=== PATIENT | female | born 1980 | race Caucasian/White ===

== ENCOUNTER 2022-10-31 07:06 | Emergency (ER) | payer OTHER ==
--- OUTSIDE RECORDS SUMMARY | 2022-10-31 07:10 | XMS REPORT | Continuity of Care Document ---
:1980 Author Organization [facility] t Address [address] [place] [address] [address] [place] [address] Care Team Providers Name Role Phone PCP, PATIENT DOES NOT HAVE A Primary Care Physician Unavaila ESHA Ridley Attending Clinician Unavailable Prateek BEAN Attending Clinician Unavailable Prateek Hardwick Attending Clinician ZACH HARVEY Attending Clinician Unavailable Zach Parkinson Attending Clinician Doctor Unassigned, [place] Attending Clinician Unavailable MAGGY PEPPER Attending Clinician Unavailable Maggy Spann Attending Clinician DINESH STEVEN Attending Clinician Unavailable MONSE PURVIS Attending Clinician Unavailable ZAHRA GEORGES Attending Clinician Unavailable ESHA NOLAN Admitting Clinician Unavailable Prateek BEAN Admitting Clinician Unavailable MAGGY PEPPER Admitting Clinician Unavailable ZAHRA GEORGES Admitting Clinician Unavailable Problems Condition Condition Condition Status Onset Resolution Last Treating Co mments Source Name Details Category Date Date Treatment Clinician Date Wrist Wrist Disease Active 2016-04 Univers pain, pain, 2-30 ity of right right 00:00: [place] 00 [facility] Branch Paresthesi Paresthesi Disease Active U nivers a of left a of left 8-02 ity of upper limb [place] [facility] Paresthesi Paresthesi Disease Active U nivers a of left a of left 7-06 ity of arm arm 00:00: [place] 00 Medical Branch Snake bite Snake bite Disease Active U nivers 6-23 ity of 00:00: [place] 00 Medical Branch Muscle Muscle Disease Active Univers atrophy of atrophy of 3-16 it y of upper upper 00:00: [place] extremity extremity 00 Medi an Branch Bicipital Bicipital Disease Active 2012-04 Uni vers tenosynovi tenosynovi 1-08 it y of tis tis 00:00: [place] 00 Medical Branch 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 1-08 ity of labrum labrum 00:00: [place] lesion lesion 00 Medical Branch Muscle Muscle Disease Active 2012-04 Univers weakness weakness 0-22 ity of of left of left 00:00: [place] upper upper 00 Medical extremity extremity Bran ch Rotator Rotator Disease Active 2012-04 Univers cuff cuff 0-09 ity of (capsule) (capsule) 00:[place] sp[place]rain 00 [facility] Stiffness Stiffness Disease Active 2012-04 Uni vers of joint, of joint, 0-09 ity of not not 00:00: [place] elsewhere elsewhere 00 [facility] an classified classified Br anch , shoulder , shoulder region region Shoulder Shoulder Disease Active 2012-04 Unive rs swelling swelling 0-09 ity of 00:00: [place] 00 Medical Branch S/P S/P Disease Active Univers shoulder shoulder 3-20 ity of surgery surgery 00:00: [place] 00 Medical Branch Papanicola Papanicola Disease Active U nivers ou smear ou smear 6-17 ity of of cervix of cervix 00:[place] with high with high 00 [facility] an 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 ICD10 Diagnosis Term Adult Specialist Utility Chronic Chronic Disease Active Overview: Univ ers depressive depressive 6-16 Formattin ity of personalit personalit 00:00: g of this [place] y disorder y disorder 00 note Me dical might be Branch different from the original. Sees Dr. Deras in psych departmen t, taking Zoloft and Desyrel Normal Normal Disease Active Univers delivery delivery 6-15 ity of 00:00: [place] 00 Medical Branch Disease Active U nivers care and care and 6-15 ity of examinatio examinatio 00:[place] 00 Medical immediatel immediatel Br anch y after y after delivery delivery Tubal Tubal Disease Active Overview: Univer s ligation ligation 09-28 Formattin ity of status status 00:00: g of this note Medical might be Branch different from the original. BTO done 09/29/07 Epilepsy Epilepsy Disease Active Overview: Un [place] - Formattin ity of 00:00: g of this note Medical might be Branch different from the original. ICD10 Diagnosis Term Adult Specialist Utility Personal Personal Disease Active Overview: Un [place] history of history of 08-04 Formattin ity of mental mental 00:00: g of this [place] disorder disorder 00 note Medica l might be Branch different from the original. 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 Uteri ICD10 Diagnosis Term Adult Specialist Utility Personal Personal Disease Active Unive rs history of history of - it y of tobacco tobacco 00:00: [place] use, use, 00 Medical presenting presenting Br anch hazards to hazards to health health Allergies, Adverse Reactions, Alerts Allergy Allergy Status Severity Reaction(s) Onset Inactive Treating Comm ents Source Name Type Date Date Clinician LATEX, Drug Active Med ITCHING Univers NATURAL Class 1-10 ity of RUBBER 00:00: Medical Branch PREGABAL DRUG Active Med Other-Cmnt Univ ers IN INGREDI 1-10 ity of 00:00: Medical Branch Latex, Propensi Active Itching Univers Natural ty to 1-10 ity of Rubber adverse 00:00: [place] reaction 00 Medical s to Branch drug Latex, Propensi Active Itching Univers Natural ty to 1-10 ity of Rubber adverse 00:00: [place] reaction 00 Medical s to Branch drug Pregabal Propensi Active Other - See U nivers in ty to comments 1-10 ity of adverse 00:00: [place] reaction 00 Medical s to Branch drug Social History Social Habit Start Date Stop Date Quantity Comments Source History of tobacco Cigarette Smoker University of use [facility] Exposure to 2022-05-31 2022-06-10 Not sure [facility] SARS-CoV-2 (event) 00:00:00 09:24:00 [facility] Alcohol intake 2022-06-10 2022-06-10 Current University of 00:00:00 00:00:00 non-drinker of [facility] alcohol Branch (finding) Cigarettes smoked 2018-01-01 2018-01-01 Univers ity of current (pack per 00:00:00 00:00:00 [facility] [place] ) - Reported Branch Cigarette 2018-01-01 2018-01-01 University of pack-years 00:00:00 00:00:00 [facility] Tobacco use and 2018-01-01 2018-01-01 Smokeless Universit y of exposure 00:00:00 00:00:00 tobacco non-user [facility] Tobacco Comment 2007-08-05 2007-08-05 16-20 times a Univer sity of 00:00:00 00:00:00 day; 16-20 yrs; [facility] ica reduced [place] Sex Ass[birth year] At [birth year] Universit y of 00:00:00 00:00:00 [facility] Smoking Status Start Date Stop Date Source Smokes tobacco daily 2018-01-01 00:00:00 Univers ity of [facility] Medications Ordered Filled Start Stop Current Ordering Indication Dosage Frequency Signature Comments Components Source Medication Medication Date Date Medication? Clinician (SIG) Name Name ibuprofen Yes [id number] 800mg Take 1 Univers 800 mg 6-08 tablet by ity of tablet 00:00: mouth [place] 00 every 6 Medical (six) Branch hours as needed for Pain (scale 4-6). methylpredn No 125mg 125 mg, U nivers isolone sod -06-10 Intramuscu i ty of succ 17:00: 16:07 lar, ONCE, [place] (SOLU-MEDRO 00 :00 1 dose, On Me dical L) Sat Branch injection 06/10/22 at 125 mg 1100, JOHNY methylPREDN 2022-0 Yes [id number] Take by Univers ISolone 2-25 mouth ity of (MEDROL, 00:00: SEE-INSTRU [place] as LOAN,) 4 mg 00 CTIONS. Medica l tablets follow Branch package directions benzonatate 2022-0 Yes [id number] 200mg Take 1 Univers 200 mg 2-25 capsule by ity of capsule 00:00: mouth 3 00 (three) Medical times Branch daily as needed for Cough for up to 20 doses. methylPREDN 2022-0 Yes [id number] Take by Univers ISolone 2-25 mouth ity of (MEDROL, 00:00: SEE-INSTRU [place] as LOAN,) 4 mg 00 CTIONS. Medica l tablets follow Branch package directions benzonatate 2022-0 Yes [id number] 200mg Take 1 Univers 200 mg 2-25 capsule by ity of capsule 00:00: mouth 3 (three) Medical times Branch daily as needed for Cough for up to 20 doses. methylPREDN 2021-0 Yes [id number] Take by Univers ISolone 4 9-20 mouth ity of mg tablets 00:00: [place]-INSTRU [place] 00 CTIONS. Medical follow Branch package directions albuterol 2021-0 Yes [id number] 2{puff} Inhale 2 Univers 90 9-20 Puffs ity of mcg/actuati 00:00: every 4 [place] as on inhaler 00 (four) Medical hours as Branch needed for Wheezing or Shortness of Breath. benzonatate 2021-0 Yes [id number] 100mg Take 1 Univers 100 mg 9-20 capsule by ity of capsule 00:00: mouth 3 [place] 00 (three) Medical times Branch daily as needed for Cough. methylPREDN 2021-0 Yes [id number] Take by Univers ISolone 4 9-20 mouth ity of mg tablets 00:00: SEE-INSTRU [place] 00 CTIONS. Medical follow Branch package directions albuterol 2021-0 Yes [id number] 2{puff} Inhale 2 Univers 90 9-20 Puffs ity of mcg/actuati 00:00: every 4 [place] as on inhaler 00 (four) Medical hours as Branch needed for Wheezing or Shortness of Breath. benzonatate 2021-0 Yes [id number] 100mg Take 1 Univers 100 mg 9-20 capsule by ity of capsule 00:00: mouth 3 [place] 00 (three) Medical times Branch daily as needed for Cough. methylPREDN Yes [id number] Take by Univers ISolone 4 9-20 mouth ity of mg tablets 00:00: SEE-INSTRU [place] 00 CTIONS. Medical follow Branch package directions albuterol Yes [id number] 2{puff} Inhale 2 Univers 90 9-20 Puffs ity of mcg/actuati 00:00: every 4 [place] on inhaler 00 (four) Medical hours as Branch needed for Wheezing or Shortness of Breath. benzonatate Yes [id number] 100mg Take 1 Univers 100 mg 9-20 capsule by ity of capsule 00:00: mouth 3 [place] 00 (three) Medical times Branch daily as needed for Cough. ketorolac 2021- No 15mg 15 mg, Unive rs (TORADOL) 05-23 Slow IV ity of injection 19:15: 18:13 Push, [place] 15 mg 00 :00 ONCE, 1 Medical dose, On Branch Sun05/23/21 at 1315, JOHNY
Fa culty member approving Restricted medication : Prateek BEAN HYDROcodone 2021- No 1{tbl} 1 tablet, Univers -acetaminop 05-23 Oral, ity of hen (NORCO 18:15: 17:17 ONCE, 1 [place] 5) 5-325 mg 00 :00 dose, On Medi an tablet 1 Sun05/23/21 Bran h tablet at 1215, JOHNY iopamidol 2021- No [id number] 100mL 100 mL, Univers (ISOVUE 05-23 Intravenou ity o f 370-500 mL) 17:05: 17:30 s, ONCE, 1 [place] injection 00 :00 dose, On Medica l 100 mL Sun05/23/21 Branch at 1130, Routine traMADoL 50 Yes [id number] 50mg Take 1 Univ ers mg tablet 2-07 tablet by ity o f 00:00: mouth [place] 00 every 6 Medical (six) Branch hours as needed for Pain (scale 4-6). Indication s: acute pain ibuprofen 2022-0 Yes [id number] 600mg Take 1 Univers 600 mg 2-07 tablet by ity of tablet 00:00: mouth [place] 00 every 6 Medical (six) Branch hours as needed for Pain (scale 4-6). traMADoL 50 2021-0 Yes [id number] 50mg Take 1 Univ ers mg tablet 2-07 tablet by ity o f 00:00: mouth [place] 00 every 6 Medical (six) Branch hours as needed for Pain (scale 4-6). Indication s: acute pain ibuprofen 2021-0 Yes [id number] 600mg Take 1 Univers 600 mg 2-07 tablet by ity of tablet 00:00: mouth [place] 00 every 6 Medical (six) Branch hours as needed for Pain (scale 4-6). traMADoL 50 2021-0 Yes [id number] 50mg Take 1 Univ ers mg tablet 2-07 tablet by ity o f 00:00: mouth [place] 00 every 6 Medical (six) Branch hours as needed for Pain (scale 4-6). Indication s: acute pain ibuprofen 2021-0 Yes [id number] 600mg Take 1 Univers 600 mg 2-07 tablet by ity of tablet 00:00: mouth [place] 00 every 6 Medical (six) Branch hours as needed for Pain (scale 4-6). traMADoL 50 2021-0 Yes [id number] 50mg Take 1 Univ ers mg tablet 2-07 tablet by ity o f 00:00: mouth [place] 00 every 6 Medical (six) Branch hours as needed for Pain (scale 4-6). Indication s: acute pain ibuprofen 2021-0 Yes [id number] 600mg Take 1 Univers 600 mg 2-07 tablet by ity of tablet 00:00: mouth [place] 00 every 6 Medical (six) Branch hours as needed for Pain (scale 4-6). traMADoL 50 2021-0 Yes [id number] 50mg Take 1 Univ ers mg tablet 2-07 tablet by ity o f 00:00: mouth [place] 00 every 6 Medical (six) Branch hours as needed for Pain (scale 4-6). Indication s: acute pain ibuprofen 2021-0 Yes [id number] 600mg Take 1 Univers 600 mg 2-07 tablet by ity of tablet 00:00: mouth [place] 00 every 6 Medical (six) Branch hours as needed for Pain (scale 4-6). methocarbam 2021- No 500mg 500 mg, U nivers oL 05-16 Oral, ity of (ROBAXIN) 23:45: 22:46 ONCE, 1 [place] tablet 500 00 :00 dose, On Medic al mg Mon Branch 05/16/21 at 1745, Routine ketorolac 2021- No 30mg 30 mg, Unive rs (TORADOL) 05-16 Slow IV ity of injection 23:45: 22:46 [place], [place] 30 mg 00 :00 ONCE, 1 Medical dose, On Branch 05/16/21 at 1745, [facility] : MAGGY PEPPER HYDROcodone 2021- No 1{tbl} 1 tablet, Univers -acetaminop 05-16 Oral, ity of hen (NORCO) 23:45: 22:45 ONCE, 1 [place] 10-325 mg 00 :00 dose, On Medica l tablet 1 Mon Branch tablet 05/16/21 at 1745, Routine methocarbam Yes [id number] 500mg Take 1 Univers oL 500 mg 05-16 [id number] tablet by ity of tablet 00:00: mouth 4 [place] 00 (four) Medical times Branch daily as needed for Pain (scale 4-6). naproxen Yes [id number] 500mg Take 1 Univers (NAPROSYN) 05-16 [id number] tablet by it y of 500 mg 00:00: mouth 2 [place] tablet 00 (two) Medical times Branch daily with meals. acetaminoph Yes [id number] 1{tbl} Take 1 Un [place] en-codeine 05-16 tablet by ity of 300-30 mg 00:00: mouth [place] tablet 00 every 4 Medical (four) Branch hours as needed for Pain (scale 7-10). Indication s: acute pain methocarbam Yes [id number] 500mg Take 1 Univers oL 500 mg 05-16 [id number] tablet by ity of tablet 00:00: mouth 4 [place] 00 (four) Medical times Branch daily as needed for Pain (scale 4-6). naproxen Yes [id number] 500mg Take 1 Univers (NAPROSYN) 05-16 [id number] tablet by it y of 500 mg 00:00: mouth 2 [place] tablet 00 (two) Medical times Branch daily with meals. acetaminoph 2022-0 Yes [id number] 1{tbl} Take 1 Un [place] en-codeine 1-31 tablet by ity of 300-30 mg 00:00: mouth [place] tablet 00 every 4 Medical (four) Branch hours as needed for Pain (scale 7-10). Indication s: acute pain methocarbam 2021-0 Yes [id number] 500mg Take 1 Univers oL 500 mg 1-31 [id number] tablet by ity of tablet 00:00: mouth 4 [place] 00 (four) Medical times Branch daily as needed for Pain (scale 4-6). naproxen 2022-0 Yes [id number] 500mg Take 1 Univers (NAPROSYN) 1-31 [id number] tablet by it y of 500 mg 00:00: mouth 2 [place] tablet 00 (two) Medical times Branch daily with meals. acetaminoph 2022-0 Yes [id number] 1{tbl} Take 1 Un [place] en-codeine 1-31 tablet by ity of 300-30 mg 00:00: mouth [place] tablet 00 every 4 Medical (four) Branch hours as needed for Pain (scale 7-10). Indication s: acute pain methocarbam 2021-0 Yes [id number] 500mg Take 1 Univers oL 500 mg 1-31 [id number] tablet by ity of tablet 00:00: mouth 4 [place] 00 (four) Medical times Branch daily as needed for Pain (scale 4-6). naproxen 2-0 Yes [id number] 500mg Take 1 Univers (NAPROSYN) 1-31 [id number] tablet by it y of 500 mg 00:00: mouth 2 [place] tablet 00 (two) Medical times Branch daily with meals. acetaminoph 2022-0 Yes [id number] 1{tbl} Take 1 Un [place] en-codeine 1-31 tablet by ity of 300-30 mg 00:00: mouth [place] tablet 00 every 4 Medical (four) Branch hours as needed for Pain (scale 7-10). Indication s: acute pain methocarbam 2-0 Yes [id number] 500mg Take 1 Univers oL 500 mg 1-31 [id number] tablet by ity of tablet 00:00: mouth 4 [place] 00 (four) Medical times Branch daily as needed for Pain (scale 4-6). naproxen 2022-0 Yes [id number] 500mg Take 1 Univers (NAPROSYN) 1-31 [id number] tablet by it y of 500 mg 00:00: mouth 2 [place] tablet 00 (two) Medical times Branch daily with meals. acetaminoph 2021-0 Yes [id number] 1{tbl} Take 1 Un [place] en-codeine 1-31 tablet by ity of 300-30 mg 00:00: mouth [place] tablet 00 every 4 Medical (four) Branch hours as needed for Pain (scale 7-10). Indication s: acute pain methocarbam 2021-0 Yes [id number] 500mg Take 1 Univers oL 500 mg 1-31 [id number] tablet by ity of tablet 00:00: mouth 4 [place] 00 (four) Medical times Branch daily as needed for Pain (scale 4-6). naproxen 2021-0 Yes [id number] 500mg Take 1 Univers (NAPROSYN) 1-31 [id number] tablet by it y of 500 mg 00:00: mouth 2 [place] tablet 00 (two) Medical times Branch daily with meals. acetaminoph 2021-0 Yes [id number] 1{tbl} Take 1 Un [place] en-codeine 1-31 tablet by ity of 300-30 mg 00:00: mouth [place] tablet 00 every 4 Medical (four) Branch hours as needed for Pain (scale 7-10). Indication s: acute pain ibuprofen 2020-0 Yes [id number] 600mg Take 1 Univers 600 mg 5-25 tablet by ity of tablet 00:00: mouth [place] 00 every 6 Medical (six) Branch hours as needed for Pain (scale 4-6). ibuprofen 2020-0 Yes [id number] 600mg Take 1 Univers 600 mg 5-25 tablet by ity of tablet 00:00: mouth [place] 00 every 6 Medical (six) Branch hours as needed for Pain (scale 4-6). ibuprofen 2021-0 Yes [id number] 600mg Take 1 Univers 600 mg 5-25 tablet by ity of tablet 00:00: mouth [place] 00 every 6 Medical (six) Branch hours as needed for Pain (scale 4-6). ibuprofen 202-0 Yes [id number] 600mg Take 1 Univers 600 mg 5-25 tablet by ity of tablet 00:00: mouth [place] 00 every 6 Medical (six) Branch hours as needed for Pain (scale 4-6). ibuprofen 2020-0 Yes [id number] 600mg Take 1 Univers 600 mg 5-25 tablet by ity of tablet 00:00: mouth [place] 00 every 6 Medical (six) Branch hours as needed for Pain (scale 4-6). ibuprofen 2020-0 Yes [id number] 600mg Take 1 Univers 600 mg 5-25 tablet by ity of tablet 00:00: mouth [place] 00 every 6 Medical (six) Branch hours as needed for Pain (scale 4-6). ibuprofen 2020-0 Yes [id number] 800mg Take 1 U nivers 800 mg 6-23 tablet by ity of tablet 00:00: mouth [place] 00 every 8 Medical (eight) Branch hours as needed for Pain (scale 4-6). ibuprofen 2020-0 Yes [id number] 800mg Take 1 U nivers 800 mg 6-23 tablet by ity of tablet 00:00: mouth [place] 00 every 8 Medical (eight) Branch hours as needed for Pain (scale 4-6). ibuprofen 2020-0 Yes [id number] 800mg Take 1 U nivers 800 mg 6-23 tablet by ity of tablet 00:00: mouth [place] 00 every 8 Medical (eight) Branch hours as needed for Pain (scale 4-6). ibuprofen 2020-0 Yes [id number] 800mg Take 1 U nivers 800 mg 6-23 tablet by ity of tablet 00:00: mouth [place] 00 every 8 Medical (eight) Branch hours as needed for Pain (scale 4-6). ibuprofen 2020-0 Yes [id number] 800mg Take 1 U nivers 800 mg 6-23 tablet by ity of tablet 00:00: mouth [place] 00 every 8 Medical (eight) Branch hours as needed for Pain (scale 4-6). ibuprofen 2020-0 Yes [id number] 800mg Take 1 U nivers 800 mg 6-23 tablet by ity of tablet 00:00: mouth [place] 00 every 8 Medical (eight) Branch hours as needed for Pain (scale 4-6). acetaminoph 2020-0 2- No [id number] 1{tbl} Take 1 Univers en-codeine 6-23 - tablet by ity of (TYLENOL-CO 00:00: 00:00 [place] DEINE #3) 00 :00 every 4 Medical 300-30 mg (four) Branch tablet hours as needed for Pain (scale 7-10). methocarbam 2020-0 2021- No [id number] 750mg Take 1 Univers ol 6-23 -31 tablet by ity of (ROBAXIN-75 00:00: 00:00 [place] 4 [place] 0) 750 mg 00 :00 (four) Medical tablet times Branch daily as needed for Pain (scale 7-10). ondansetron 2020-0 Yes [id number] 4mg Take 1 Univers (ZOFRAN 1-26 tablet by ity of ODT) 4 mg 00:00: mouth [place] disintegrat 00 every 8 Medic al ing tablet (eight) Branch hours as needed for Nausea and Vomiting (N/V). albuterol 2020-0 Yes [id number] 2.5mg Inhale 3 Univers 2.5 mg /3 1-26 mL every 4 ity of mL (0.083 00:00: (four) [place] %) 00 hours as Medical nebulizer needed for Bran ch solution Wheezing or Shortness of Breath. benzonatate 2020-0 Yes [id number] 100mg Take 1 Univers 100 mg 1-26 capsule by ity of capsule 00:00: mouth 3 [place] 00 (three) Medical times Branch daily as needed for Cough. ondansetron 2020-0 Yes [id number] 4mg Take 1 Univers (ZOFRAN 1-26 tablet by ity of ODT) 4 mg 00:00: mouth [place] disintegrat 00 every 8 Medic al ing tablet (eight) Branch hours as needed for Nausea and Vomiting (N/V). albuterol 2020-0 Yes [id number] 2.5mg Inhale 3 Univers 2.5 mg /3 1-26 mL every 4 ity of mL (0.083 00:00: (four) [place] %) 00 hours as Medical nebulizer needed for Bran ch solution Wheezing or Shortness of Breath. benzonatate 2020-0 Yes [id number] 100mg Take 1 Univers 100 mg 1-26 capsule by ity of capsule 00:00: mouth 3 [place] 00 (three) Medical times Branch daily as needed for Cough. ondansetron 2020-0 Yes [id number] 4mg Take 1 Univers (ZOFRAN 1-26 tablet by ity of ODT) 4 mg 00:00: mouth [place] disintegrat 00 every 8 Medic al ing tablet (eight) Branch hours as needed for Nausea and Vomiting (N/V). ondansetron 2020-0 Yes [id number] 4mg Take 1 Univers (ZOFRAN 1-26 tablet by ity of ODT) 4 mg 00:00: mouth [place] disintegrat 00 every 8 Medic al ing tablet (eight) Branch hours as needed for Nausea and Vomiting (N/V). ondansetron 2020-0 Yes [id number] 4mg Take 1 Univers (ZOFRAN 1-26 tablet by ity of ODT) 4 mg 00:00: mouth [place] disintegrat 00 every 8 Medic al ing tablet (eight) Branch hours as needed for Nausea and Vomiting (N/V). ondansetron 2020-0 Yes [id number] 4mg Take 1 Univers (ZOFRAN 1-26 tablet by ity of ODT) 4 mg 00:00: mouth [place] disintegrat 00 every 8 Medic al ing tablet (eight) Branch hours as needed for Nausea and Vomiting (N/V). albuterol 2020-0 Yes [id number] 2.5mg Inhale 3 Univers 2.5 mg /3 1-26 mL every 4 ity of mL (0.083 00:00: (four) [place] %) 00 hours as Medical nebulizer needed for Bran ch solution Wheezing or Shortness of Breath. benzonatate 2020-0 Yes [id number] 100mg Take 1 Univers 100 mg 1-26 capsule by ity of capsule 00:00: mouth 3 [place] 00 (three) Medical times Branch daily as needed for Cough. albuterol 2019-2021- No [id number] 2.5mg Inhale 3 Univers 2.5 mg /3 1-26 09-20 mL every 4 ity of mL (0.083 00:00: 00:00 (four) [place] %) 00 :00 hours as Medical nebulizer needed for Bran ch solution Wheezing or Shortness of Breath. benzonatate 2020-0 2021- No [id number] 100mg Take 1 Univers 100 mg 1-26 09-20 capsule by ity of capsule 00:00: 00:00 mouth 3 [place] 00 :00 (three) Medical times Branch daily as needed for Cough. sod 2018-04 Yes [id number] 1{bottl Use 1 Unive rs chlor-bicar 0-11 e} Bottle in ity of b-squeez 00:00: each [place] bottle 00 nostril 2 Medical (NEILMED (two) Branch SINUS RINSE times COMPLETE) daily. Use pkdv in hot shower 1 hour before bedtime promethazin 2018-04 Yes [id number] 5mL Take 5 mL Univers e-codeine 0-11 by mouth 4 ity of 6.25-10 00:00: (four) [place] mg/5 mL 00 times Medical syrup daily as Branch needed for Cough. sod 2018-04 Yes [id number] 1{bottl Use 1 Unive rs chlor-bicar 0-11 e} Bottle in ity of b-squeez 00:00: each [place] bottle 00 nostril 2 Medical (NEILMED (two) Branch SINUS RINSE times COMPLETE) daily. Use pkdv in hot shower 1 hour before bedtime promethazin 2018-04 Yes [id number] 5mL Take 5 mL Univers e-codeine 0-11 by mouth 4 ity of 6.25-10 00:00: (four) [place] mg/5 mL 00 times Medical syrup daily as Branch needed for Cough. sod 2018-04 Yes [id number] 1{bottl Use 1 Unive rs chlor-bicar 0-11 e} Bottle in ity of b-squeez 00:00: each [place] bottle 00 nostril 2 Medical (NEILMED (two) Branch SINUS RINSE times COMPLETE) daily. Use pkdv in hot shower 1 hour before bedtime promethazin 2018-04 Yes [id number] 5mL Take 5 mL Univers e-codeine 0-11 by mouth 4 ity of 6.25-10 00:00: (four) [place] mg/5 mL 00 times Medical syrup daily as Branch needed for Cough. sod 2018-04 Yes [id number] 1{bottl Use 1 Unive rs chlor-bicar 0-11 e} Bottle in ity of b-squeez 00:00: each [place] bottle 00 nostril 2 Medical (NEILMED (two) Branch SINUS RINSE times COMPLETE) daily. Use pkdv in hot shower 1 hour before bedtime promethazin 2018-04 Yes [id number] 5mL Take 5 mL Univers e-codeine 0-11 by mouth 4 ity of 6.25-10 00:00: (four) [place] mg/5 mL 00 times Medical syrup daily as Branch needed for Cough. sod 2018-04 Yes [id number] 1{bottl Use 1 Unive rs chlor-bicar 0-11 e} Bottle in ity of b-squeez 00:00: each [place] bottle 00 nostril 2 Medical (NEILMED (two) Branch SINUS RINSE times COMPLETE) daily. Use pkdv in hot shower 1 hour before bedtime promethazin 2018-04 Yes [id number] 5mL Take 5 mL Univers e-codeine 0-11 by mouth 4 ity of 6.25-10 00:00: (four) [place] mg/5 mL 00 times Medical syrup daily as Branch needed for Cough. sod 2018-04 Yes [id number] 1{bottl Use 1 Unive rs chlor-bicar 0-11 e} Bottle in ity of b-squeez 00:00: each [place] bottle 00 nostril 2 Medical (NEILMED (two) Branch SINUS RINSE times COMPLETE) daily. Use pkdv in hot shower 1 hour before bedtime promethazin 2018-04 Yes [id number] 5mL Take 5 mL Univers e-codeine 0-11 by mouth 4 ity of 6.25-10 00:00: (four) [place] mg/5 mL 00 times Medical syrup daily as Branch needed for Cough. cyclobenzap Yes [id number] 5mg Take 1 Univers rine 5 mg 8-25 [id number] tablet by ity of tablet 00:00: mouth 3 [place] 00 (three) Medical times Branch daily. traMADol Yes [id number] 50mg Take 1 Univers (ULTRAM) 50 8-25 [id number] tablet by i ty of mg tablet 00:00: mouth [place] 00 every 8 Medical (eight) Branch hours as needed for Pain (scale 4-6). ibuprofen Yes [id number] 600mg Take 1 Univers 600 mg 8-25 [id number] tablet by ity of tablet 00:00: mouth 4 [place] 00 (four) Medical times Branch daily as needed for Pain (scale 4-6). cyclobenzap Yes [id number] 5mg Take 1 Univers rine 5 mg 8-25 [id number] tablet by ity of tablet 00:00: mouth 3 [place] 00 (three) Medical times Branch daily. traMADol 2018- Yes [id number] 50mg Take 1 Univers (ULTRAM) 50 8-25 [id number] tablet by i ty of mg tablet 00:00: mouth [place] 00 every 8 Medical (eight) Branch hours as needed for Pain (scale 4-6). ibuprofen 2019-0 Yes [id number] 600mg Take 1 Univers 600 mg 8-25 [id number] tablet by ity of tablet 00:00: mouth 4 (four) Medical times Branch daily as needed for Pain (scale 4-6). cyclobenzap 2019-0 Yes [id number] 5mg Take 1 Univers rine 5 mg 8-25 [id number] tablet by ity of tablet 00:00: mouth 3 (three) Medical times Branch daily. traMADol 2019-0 Yes [id number] 50mg Take 1 Univers (ULTRAM) 50 8-25 [id number] tablet by i ty of mg tablet 00:00: mouth [place] 00 every 8 Medical (eight) Branch hours as needed for Pain (scale 4-6). ibuprofen 2019-0 Yes [id number] 600mg Take 1 Univers 600 mg 8-25 [id number] tablet by ity of tablet 00:00: mouth (four) Medical times Branch daily as needed for Pain (scale 4-6). cyclobenzap 2019-0 Yes [id number] 5mg Take 1 Univers rine 5 mg 8-25 [id number] tablet by ity of tablet 00:00: mouth (three) Medical times Branch daily. traMADol 2019-0 Yes [id number] 50mg Take 1 Univers (ULTRAM) 50 8-25 [id number] tablet by i ty of mg tablet 00:00: mouth [place] 00 every 8 Medical (eight) Branch hours as needed for Pain (scale 4-6). ibuprofen 2019-0 Yes [id number] 600mg Take 1 Univers 600 mg 8-25 [id number] tablet by ity of tablet 00:00: mouth (four) Medical times Branch daily as needed for Pain (scale 4-6). cyclobenzap 2019-0 Yes [id number] 5mg Take 1 Univers rine 5 mg 8-25 [id number] tablet by ity of tablet 00:00: mouth 3 (three) Medical times Branch daily. traMADol 2019-0 Yes [id number] 50mg Take 1 Univers (ULTRAM) 50 8-25 [id number] tablet by i ty of mg tablet 00:00: mouth [place] 00 every 8 Medical (eight) Branch hours as needed for Pain (scale 4-6). ibuprofen 2019-0 Yes [id number] 600mg Take 1 Univers 600 mg 8-25 [id number] tablet by ity of tablet 00:00: mouth 4 [place] 00 (four) Medical times Branch daily as needed for Pain (scale 4-6). cyclobenzap 2018-0 Yes [id number] 5mg Take 1 Univers rine 5 mg 8-25 [id number] tablet by ity of tablet 00:00: mouth 3 [place] 00 (three) Medical times Branch daily. traMADol 2018- Yes [id number] 50mg Take 1 Univers (ULTRAM) 50 8-25 [id number] tablet by i ty of mg tablet 00:00: mouth [place] 00 every 8 Medical (eight) Branch hours as needed for Pain (scale 4-6). ibuprofen Yes [id number] 600mg Take 1 Univers 600 mg 8-25 [id number] tablet by ity of tablet 00:00: mouth 4 [place] 00 (four) Medical times Branch daily as needed for Pain (scale 4-6). codeine-gua Yes [id number] 10mL Take 10 mL Univers ifenesin 6-10 by mouth ity of 10-100 mg/5 00:00: every 6 [place] as mL solution 00 (six) Medical hours as Branch needed for Cough. codeine-gua Yes [id number] 10mL Take 10 mL Univers ifenesin 6-10 by mouth ity of 10-100 mg/5 00:00: every 6 [place] as mL solution 00 (six) Medical hours as Branch needed for Cough. codeine-gua Yes [id number] 10mL Take 10 mL Univers ifenesin 6-10 by mouth ity of 10-100 mg/5 00:00: every 6 [place] as mL solution 00 (six) Medical hours as Branch needed for Cough. codeine-gua Yes [id number] 10mL Take 10 mL Univers ifenesin 6-10 by mouth ity of 10-100 mg/5 00:00: every 6 [place] as mL solution 00 (six) Medical hours as Branch needed for Cough. codeine-gua Yes [id number] 10mL Take 10 mL Univers ifenesin 6-10 by mouth ity of 10-100 mg/5 00:00: every 6 [place] as mL solution 00 (six) Medical hours as Branch needed for Cough. codeine-gua 2019-0 Yes [id number] 10mL Take 10 mL Univers ifenesin 6-10 by mouth ity of 10-100 mg/5 00:00: every 6 [place] as mL solution 00 (six) Medical hours as Branch needed for Cough. Immunizations Ordered Filled Immunization Date Status Comments [facility]ly [facility] e Immunization Name Name Rolly LARAID-Adrian Lofton COVID-19 2020-06-26 Completed Vaccine Vaccine 00:00:00 Rolly COVID-19 Rloly COVID-19 2020-05-21 Completed Vaccine Vaccine 00:00:00 Influenza Virus 2018-03-19 Completed Universit y of Vaccine 00:00:00 [facility] Influenza Virus 2018-03-19 Completed Universit y of Vaccine 00:00:00 [facility] Influenza Virus 2018-03-19 Completed Universit y of Vaccine 00:00:00 [facility] Influenza Virus 2018-03-19 Completed Universit y of Vaccine 00:00:00 [facility] Influenza Virus 2018-03-19 Completed Universit y of Vaccine 00:00:00 [facility] Influenza Virus 2018-03-19 Completed Universit y of Vaccine 00:00:00 [facility] Vital Signs Vital Name Observation Time Observation Value Comments Source Systolic blood 2022-09-21 21:48:00 152 mm[Hg] Univer sity of pressure [facility] Diastolic blood 2022-09-21 21:48:00 96 mm[Hg] Unive rsity of [facility] Heart rate 2022-09-21 21:48:00 71 /min [facility] Body temperature 2022-09-21 21:48:00 36.78 Tete [facility] 2022-09-21 21:48:00 16 /min [facility] Body weight 2022-09-21 21:48:00 79.833 kg [facility] BMI 2022-09-21 21:48:00 28.41 kg/m2 [facility] Oxygen saturation in 2022-09-21 21:48:00 97 /min [facility] Arterial blood by [facility] Pulse oximetry Branch Systolic blood 2022-06-10 15:25:00 114 mm[Hg] Univer sity of pressure [facility] Diastolic blood 2022-06-10 15:25:00 84 mm[Hg] Unive rsity of pressure [place] [facility] Heart rate 2022-06-10 15:25:00 105 /min [facility] [place] [facility] Body temperature 2022-06-10 15:25:00 36.78 Tete Univ [facility] [place] [facility] Respiratory rate 2022-06-10 15:25:00 16 /min [facility] [place] [facility] Body height 2022-06-10 15:25:00 167.6 cm [facility] [place] [facility] Body weight 2022-06-10 15:25:00 81.647 kg [facility] [place] [facility] BMI 2022-06-10 15:25:00 29.05 kg/m2 [facility] [place] [facility] Oxygen saturation in 2022-06-10 15:25:00 97 /min University of Arterial blood by [place] [facility] Pulse oximetry Branch Systolic blood 2022-01-03 20:23:00 126 mm[Hg] Univer sity of pressure [place] [facility] Diastolic blood 2022-01-03 20:23:00 93 mm[Hg] Unive rsity of pressure [place] [facility] Heart rate 2022-01-03 20:23:00 102 /min Universi ty [facility] [place] [facility] Body temperature 2022-01-03 20:23:00 37.44 Tete Univ [facility] [place] [facility] Respiratory rate 2022-01-03 20:23:00 18 /min Univ [facility] [place] [facility] Body height 2022-01-03 20:23:00 167.6 cm [facility] [place] [facility] Body weight 2022-01-03 20:23:00 81.647 kg [facility] [place] [facility] BMI 2022-01-03 20:23:00 29.05 kg/m2 [facility] [place] [facility] Oxygen saturation in 2022-01-03 20:23:00 98 /min University of Arterial blood by [place] [facility] Pulse oximetry Branch Oxygen saturation in 2021-05-23 18:17:00 97 /min University of Arterial blood by [place] [facility] Pulse oximetry Branch Systolic blood 2021-05-23 16:22:00 150 mm[Hg] Univer sity of pressure [place] [facility] Diastolic blood 2021-05-23 16:22:00 96 mm[Hg] Unive rsity of pressure [place] [facility] Heart rate 2021-05-23 16:22:00 88 /min [facility]i [facility] [place] [facility] Body temperature 2021-05-23 16:22:00 36.67 Tete Univ [facility] [place] [facility] Respiratory rate 2021-05-23 16:22:00 20 /min [facility] [place] [facility] Body weight 2021-05-23 16:22:00 86.183 kg [facility] [place] [facility] BMI 2021-05-23 16:22:00 30.67 kg/m2 [facility] [place] [facility] Systolic blood 2021-05-16 22:47:44 114 mm[Hg] Univer sity of pressure [place] [facility] Diastolic blood 2021-05-16 22:47:44 84 mm[Hg] Unive rsity of pressure [place] [facility] Heart rate 2021-05-16 22:47:44 95 /min [facility] [place] [facility] Body temperature 2021-05-16 22:47:44 36.89 Tete [facility] ersity [facility] [place] [facility] Respiratory rate 2021-05-16 22:47:44 18 /min Univ [facility] [place] [facility] Body height 2021-05-16 21:59:00 167.6 cm [facility] [place] [facility] Body weight 2021-05-16 21:53:00 86.183 kg [facility] [place] [facility] BMI 2021-05-16 21:53:00 30.67 kg/m2 [facility] [place] [facility] Oxygen saturation in 2021-05-16 21:53:00 98 /min [facility] blood by [facility] Pulse oximetry Branch Procedures Procedure Date / Time Performing Clinician Source Performed ASSIGNMENT OF BENEFITS 2022-09-21 23:15:28 Doctor Unassigned, No [facility] Name Medical Branch NOTICE OF PRIVACY 2022-09-21 21:44:31 Doctor Unassigned, No [facility] PRACTICES Name Medical Branch CONSENT/REFUSAL FOR 2022-09-21 21:43:55 Doctor Unassigned, No [facility] [place] [facility] Name Medical Branch CONSENT/REFUSAL FOR 2022-06-10 15:13:24 Doctor Unassigned, No Un iversity [facility] [place] [facility] DIAGNOSIS AND TREATMENT Name Medical Branch CONSENT/REFUSAL FOR 2022-01-03 20:02:02 [facility] Branch AUTHORIZATION FOR 2021-07-07 05:01:00 Doctor Unassigned, No Univ ersity [facility] RELEASE OF PHI Name Medical Branch CT THORAX W CONTRAST 2021-05-23 17:16:43 Prateek Bean [facility] ity of [facility] NOTICE OF PRIVACY 2021-05-23 16:16:58 Doctor Unassigned, No [facility] [place] PRACTICES Name Medical Branch XR CHEST 1 VW 2021-05-16 23:04:48 Maggy Pepper [place] o f [facility] XR RIBS 3 VW RIGHT 2021-05-16 23:04:48 [facility] XR TIBIA FIBULA 2 VW 2021-05-16 23:04:48 Maggy Pepper [facility] LEFT [facility] Encounters Start End Encounter Admission Attending Care Care Encounter Source Date/Time Date/Time Type Type Clinicians Facility Department ID 2021-02-13 Emergency [facility] [id number] Univers 21:17:54 ity of [facility] 2021-02-12 Emergency [facility] [id number] Univers 12:20:36 ity of [facility] 2022-09-21 2022-09-21 Emergency X AN, [facility] ERT [id number] Univers 16:50:00 18:31:00 ESHA ity o f [facility] 2022-09-21 2022-09-21 Emergency An, [facility] [id number] Univers 16:50:00 18:31:00 Esha WEBER [id number] ity [facility] [id number] [facility] [id number] [facility] 084 Branch 2022-06-10 2022-06-10 Emergency X Prateek BEAN [facility] ERT [id number] Univers 09:27:00 11:31:00 ity of [facility] 2022-06-10 2022-06-10 Emergency Prateek Bean [facility] [id number] Univers 09:27:00 11:31:00 Rosy WEBER [id number] i ty of [place] [id number] [facility] [id number] [address] 2022-01-03 2022-01-03 Emergency X CANDICE, [facility] ERT [id number] Univers 15:25:00 15:56:00 CHRISTOPHER it y of [facility] 2022-01-03 2022-01-03 Emergency Haslet, [facility] [id number] Univers 15:25:00 15:56:00 Zach WEBER [id number] ity of [place] 4.2.7.2.6 [facility] [id number] [address] 2021-07-07 2021-07-07 Orders Doctor ALICIA [id number] Univers 00:00:00 00:00:00 Only Unassigned, [place] [id number] ity of [place] [facility] 4.2.7.2.686 [facility] [id number] [place] [address] Branch 2021-05-23 2021-05-23 Emergency X Prateek [facility] ERT [id number] Univers 10:24:00 12:33:00 ity of [facility] 2021-05-23 2021-05-23 Emergency Prateek Bean [facility] [id number] Univers 10:24:00 12:33:00 Rosy WEBER [id number] i ty of [place] 4.2.7.2.6 [facility] [id number] [address] 2021-05-16 2021-05-16 Emergency X SHANTELLE [facility] ERT [id number] Univers 15:52:00 18:04:00 MAGGY ity of [facility] 2021-05-16 2021-05-16 Emergency Shantelle [facility] [id number] Univers 15:52:00 18:04:00 Maggy S TIA [id number] i ty [address] [facility] 4.2.7.2.686 [facility] [id number] [address] 2021-05-16 2021-05-16 Outpatient R TENISHA [facility] [id number] Univers 13:30:00 13:30:[address] [facility] 2021-05-16 2021-05-16 Outpatient R TENISHA [facility] [id number] Univers 11:30:00 11:30:[address] [facility] 2021-05-16 2021-05-16 Outpatient R HYUN [facility] [id number] Univers 10:15:00 10:15:[address] [facility] 2020-06-26 2020-06-26 Outpatient GCCOVIDV GCCOVIDV [id number] GCCOVID 00:00:00 00:00:00 V 2020-05-21 2020-05-21 Outpatient GCCOVIDV GCCOVIDV [id number] GCCOVID 00:00:00 00:00:00 V 2019-10-07 2019-10-07 Emergency X JOSÉ MANUEL [facility] ERT [id number] Univers 12:05:34 14:29:00 ZAHRA [facility] 2019-05-11 2019-05-11 Emergency X Prateek BEAN [facility] ERT [id number] Univers 16:20:17 17:31:00 [facility] Results This patient has no known results.
[2022-10-31] MEDS ORDERED: MORPHINE 4 MG/ML SYR ONE (08:02)
[2022-10-31] MEDS ORDERED: ONDANSETRON 4 MG/2 ML VIAL ONE (08:02)
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
--- NOTE | 2022-10-31 08:11 | RAD REPORT ---
EXAM DESCRIPTION: RAD -Hand Left 3 View - 10/31/2022 7:54 am CLINICAL HISTORY: Left hand pain status post injury FINDINGS: No fracture or dislocation is seen involving the left hand
[2022-10-31 08:16] LABS: Absolute Lymphocytes (CBC) 2.2 K/uL (0.7-4.9); Hematocrit 46.1 % (36.0-45.0); MCV 86.6 fL (80-100); MPV 8.5 fL (7.6-11.3); RBC Red Blood Cell Count 5.32 M/uL (3.86-4.86)
[2022-10-31 08:36] LABS: Potassium 4.1 mEq/L (3.5-5.1)
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
[2022-10-31] MEDS ORDERED: CYCLOBENZAPRINE 10 MG TAB ONE (09:18)
[2022-10-31] MEDS ORDERED: HYDROCODONE/APAP 10/325 TAB ONE (09:19)
[2022-10-31 09:57] VITALS: BP 123/101; O2SAT 96
== END 2022-10-31 09:22 | disposition home or self-care (01) ==
LOC: ER 07:06
DX: S60.812A Abrasion of left wrist, initial encounter (principal); R29.91 Unspecified symptoms and signs involving the musculoskeletal system; M25.512 Pain in left shoulder; M79.642 Pain in left hand; V49.49XA Driver injured in collision with other motor vehicles in traffic accident, initial encounter; Z88.8 Allergy status to other drugs, medicaments and biological substances; Z91.040 Latex allergy status; Z91.048 Other nonmedicinal substance allergy status
CPT/HCPCS: 85025; 80048; 36415; 70450; 71250; 72125; 73130; 73110; J2405